=== PATIENT | male | born 1940 | race Caucasian/White ===

== ENCOUNTER 2016-08-15 10:09 | Emergency (ER) | payer OTHER ==
[2016-08-15 10:54] LABS: MANUAL DIFF NEEDED? NO
[2016-08-15 10:57] LABS: BASO% 0.5 % (0.0-0.8); EOS# 0.11 X1000 (0.0-0.7); EOS% 1.2 % (0.0-10.0); HEMATOCRIT 42.5 % (42.0-52.0); HEMOGLOBIN 13.9 g/dL (14.0-18.0); LYMPH# 2.49 X1000 (1.2-3.4); LYMPH% 26.9 % (20.5-51.1); MCH 29.4 PG (27-31); MCHC 32.7 g/dL (33-37); MCV 89.9 FL (81-99); MONO# 0.69 X1000 (0.11-0.59); MONO% 7.5 % (1.7-9.3); MPV 10.3 FL (7.4-10.4); NEUT% 63.9 % (42.2-75.2); PLT 207 X1000 (130-400); RBC 4.73 XMIL (4.7-6.1)
--- NOTE | 2016-08-15 11:08 | PROVIDER DOCUMENTATION ---
HPI-Cardiac General - General Source: patient Unable to obtain history due to:: urgency - History of Present Illness-Cardiac Quality of Pain: reports: none Severity in ED: mild Onset/Duration: just prior to arrival Timing: still present Context/Activities at Onset: reports: none Modifying Factors: improves with: nothing Palpitation Quality: irregular Nitro Today/Relief: reports: no nitro taken today Aspirin Treatment Today: reports: no aspirin today Prior Chest Pain/Cardiac Workup: reports: no prior chest pain Associated Symptoms: reports: denies symptoms Similar Symptoms Previously?: No Recently Seen Here or By Another Healthcare Provider: No <Ella Hollingsworth - Last Filed: 08/15/16 11:18> <Yony Fagan - Last Filed: 08/15/16 11:42> - General Chief Complaint: General Adult Stated Complaint: ABNORMAL EKG Time Seen by Provider: 08/15/16 10:27 Allergies/Adverse Reactions: Patient Allergies Allergy/AdvReac Type Severity Reaction Status Date / Time codeine Allergy ITCHING Verified 08/15/16 10:39 Home Medications: Home Medication List Medication Instructions Recorded Confirmed Last Taken Type Amlodipine [Norvasc] 5 mg PO QAM 08/15/16 08/15/16 08/14/16 History Aspirin 81 mg PO QPM 08/15/16 08/15/16 08/08/16 20:00 History Clopidogrel [Plavix] 75 mg PO QAM 08/15/16 08/15/16 08/08/16 04:00 History Glyburide 2.5 mg PO QAM 08/15/16 08/15/16 08/14/16 04:00 History Hydrochlorothiazide 12.5 mg PO QAM 08/15/16 08/15/16 08/14/16 04:00 History Levothyroxine [Synthroid] 125 microgm PO QAM 08/15/16 08/15/16 08/14/16 04:00 History Losartan [Cozaar] 100 mg PO QAM 08/15/16 08/15/16 08/14/16 04:00 History Metformin [Glucophage] 500 mg PO BID 08/15/16 08/15/16 08/14/16 02:00 History ROSUVAstatin [Crestor] 20 mg PO QPM 08/15/16 08/15/16 08/14/16 20:00 History Sitagliptin [Januvia] 50 mg PO QPM 08/15/16 08/15/16 08/14/16 20:00 History - History of Present Illness-Cardiac Nature of Presenting Problem: 75 yom presents with complaint of irregular heart beat. pt had surgery today and was advised in recovery to come to ed due to abnormal EKG. pt states he has not pacemaker. (Ella Hollingsworth) Review of Systems - Adult - REVIEW OF SYSTEMS - ADULT Constitutional: denies: chills, fever, fatique Eyes: reports: no symptoms reported Ears, Nose, Mouth & Throat: reports: no symptoms reported Cardiovascular: reports: irregular heart rate. denies: chest pain, syncope Respiratory: reports: no symptoms reported Gastrointestinal: reports: no symptoms reported Genitourinary: reports: no symptoms reported Musculoskeletal: reports: no symptoms reported Integumentary: reports: no symptoms reported Neurological: reports: no symptoms reported Psychiatric: reports: no symptoms reported Endocrine: reports: no symptoms reported Hematologic/Lymphatic: reports: no symptoms reported Allergic/Immunologic: reports: no symptoms reported All Other Systems: Reviewed and Negative <Ella Hollingsworth - Last Filed: 08/15/16 11:18> Past History - Adult - PAST MEDICAL HISTORY-ADULT Review of Records: reports: Old Records Reviewed, Nursing Assessment Review, Medications Reviewed Cardiovascular: reports: CAD, hyperlipidemia Endocrine/Immune: reports: Diabetes - PRIOR SURGERIES/PROCEDURES Surgical/Procedure History: reports: CABG, other (rotator cuff) - PRIOR HOSPITALIZATIONS Prior Hospitalizations: reports: for similar symptoms, for other non-related - IMMUNIZATION STATUS Childhood Immunizations: See Nurse Assessment Flu Vaccine: See Nurse Assessment - FAMILY HISTORY Family History: reviewed, not pertinent - SOCIAL HISTORY Smoking: denies Substance Use: denies Alcohol Use Frequency: never Living Situation: family <Ella Hollingsworth - Last Filed: 08/15/16 11:18> Physical Exam-General - PHYSICAL EXAM-ADULT Initial Vital Signs Reviewed: Yes - CONSTITUTIONAL General Appearance: appears well, alert, no apparent distress - EYES Eyes: PERRL/EOMI, pink conjunctivae, fundi clear, no AV nicking - HEAD, EARS, NOSE, MOUTH & THROAT HENMT: normocephalic/atraumatic, moist mucous membranes, normal ENT inspection - NECK Neck: non-tender, full range of motion, supple, normal inspection - RESPIRATORY Respiratory: chest non-tender, lungs clear, normal breath sounds, no pleuratic chest pain, no respiratory distress, no accessory muscle use - CARDIOVASCULAR Cardiovascular: normal peripheral pulses, no edema, no gallop, no JVD, no murmur - LYMPHATIC Lymphatic: no adenopathy - MUSCULOSKELETAL Extremity: normal range of motion, non-tender, normal gait, normal inspection - SKIN Integumentary: normal color, normal turgor, warm/dry - NEUROLOGIC Neurologic: commercial reporter II-XII nml as tested, grossly normal, no motor/sensory deficits - PSYCHIATRIC Psych/Mental Status: normal mood/affect, normal thought content, normal thought process, oriented x 3 <Ella Hollingsworth - Last Filed: 08/15/16 11:18> Progress - CONSULTS/PCP/HOSPITALIST Notification Time Discussed: 10:34 (talked to Dr. Kemal HAYNES at [facility] for admit to [facility]) Consult Disposition: Admit (transfer to [facility]) Time Discussed: 11:14 (consulted with Dr Kemal HAYNES of [facility] in [place] advised to follow up with [facility]) Consult Disposition: F/U in office <Ella Hollingsworth - Last Filed: 08/15/16 11:18> - REASSESSMENT Reassessment #1 Time Reassessed: 12:30 Status: unchanged (dicussed with cardiology [facility] and they called this nsr with pvc, but could not explain variable av intervals- no pacemaker indicated) <Yony Fagan - Last Filed: 08/15/16 11:42> - PLAN OF CARE/RESULTS Progress/Plan/Lab Results: Laboratory Tests 08/15/16 10:41 WBC 9.26 RBC 4.73 Hgb 13.9 L Hct 42.5 MCV 89.9 MCH 29.4 MCHC 32.7 L RDW Std Deviation 13.5 Plt Count 207 MPV 10.3 Immature Gran % (Auto) 0.0 Neut % (Auto) 63.9 Lymph % (Auto) 26.9 Gonzales % (Auto) 7.5 Eos % (Auto) 1.2 Baso % (Auto) 0.5 Immature Gran # (Auto) 0.00 Neut # (Auto) 5.92 Lymph # (Auto) 2.49 Gonzales # (Auto) 0.69 H Eos # (Auto) 0.11 Baso # (Auto) 0.05 Orders Category Date Time Status CBC WITH ELECTRONIC DIFF [HEME] Stat Lab 08/15/16 10:41 Completed CMP [COMPREHENSIVE METABOLIC PANEL] [CHEM] Stat Lab 08/15/16 10:41 Received EKG [EKG] Stat Ther 08/15/16 10:20 Ordered Vital Signs - 24 hr 08/15/16 10:16 Temperature 97.4 F L Pulse Rate 60 Respiratory 20 Rate Blood Pressure 154/64 O2 Sat by Pulse 99 Oximetry (Ella Hollingsworth) Departure - Departure Time of Disposition Order: 11:11 <Ella Hollingsworth - Last Filed: 08/15/16 11:18> - Departure Time of Disposition Order: 11:40 Certified Medical Emergency: Emergent <Yony Fagan - Last Filed: 08/15/16 11:42> - Departure DIAGNOSIS: Arrhythmia, AV node Disposition: HOME 01 Condition: Stable Additional Instructions: fu with medical billing associate ED Follow Up Instructions: You have been treated by a care provider in the Emergency Department. These instructions are being provided to you so you can have an understanding of how to care for yourself upon discharge. Upon discharge from the Emergency Department, you are responsible for making arrangements for follow-up care by a physician of your choice. Take all prescribed medications as directed. Return to the Emergency Department immediately for any new or worsening symptoms. You may call the Physician Referral phone number at [phone] to obtain a list of Physicians who are taking new patients. Referrals: Minh Amaya [Primary Care Provider] - Attestation - Scribe Verification/Attestation Scribe:: Ella Hollingsworth Acting as Scribe for:: Yony Fagan Scribe documention review:: This chart was documented by a scribe and accurately reflects the service the provider performed and the decisions made by the provider. <Ella Hollingsworth - Last Filed: 08/15/16 11:18> Physician Attestation
[2016-08-15 11:13] LABS: ALBUMIN 3.9 g/dL (3.5-5.0); CALCIUM 8.9 mg/dL (8.8-10.2); POTASSIUM 4.5 mmol/L (3.5-5.1); TOTAL BILIRUBIN 0.45 mg/dL (0.20-1.00); TOTAL PROTEIN 6.6 g/dL (6.3-8.3)
--- NOTE | 2016-08-15 11:15 | EKG Report ---
Test Performed on : 08/15/2016 10:13:37 AM Test Reason : ABNORMAL EKG Blood Pressure : / mmHG Vent. Rate : 069 BPM Atrial Rate : 096 BPM P-R Int : 000 ms QRS Dur : 098 ms QT Int : 394 ms P-R-T Axes : 000 110 049 degrees QTc Int : 422 ms Sinus rhythm. 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 with frequent premature ventricular complexes. Low voltage QRS Left posterior fascicular block Cannot rule out Anteroseptal infarct (cited on or before 29-JUN-2007) Abnormal ECG When compared with ECG of 27-JUL-2007 13:46, premature ventricular complexes. are now present Sinus rhythm. 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 QRS duration has increased Nonspecific T wave abnormality now evident in Inferior leads Unconfirmed Result
[2016-08-15 13:26] VITALS: BP 132/55
== END 2016-08-15 13:05 | disposition home or self-care (01) ==
LOC: ED 10:09
DX: I49.8 Other specified cardiac arrhythmias (principal); R94.31 Abnormal electrocardiogram [ECG] [EKG]; I25.10 Atherosclerotic heart disease of native coronary artery without angina pectoris; E78.5 Hyperlipidemia, unspecified; E11.8 Type 2 diabetes mellitus with unspecified complications; Z95.1 Presence of aortocoronary bypass graft; Z79.899 Other long term (current) drug therapy; Z79.02 Long term (current) use of antithrombotics/antiplatelets; Z79.82 Long term (current) use of aspirin
CPT/HCPCS: 80053; 85025; 93005